=== PATIENT | male | born 1980 | race Caucasian/White ===

== ENCOUNTER 2016-03-01 18:20 | Emergency (ER) | payer OTHER ==
[~2016-03-01] VITALS: Ht 177.8 cm; Wt 69.9 kg
[~2016-03-01 18:20] MED LIST: ALBUTEROL0.09 MG/A2 INH; ALEVE220 MG PO; CLEOCIN HCL300 MG PO; CONZIP100 MG PO; CYMBALTA60 M1 PO; FIORICET 325 MG1 TAB PO; FLONASE120 SPRAY/ NAS; GABAPENTIN300 M2 PO; GOOD SENSE IBU200 MG PO; IBUPROFEN800 M1 PO; MEDROL DOSEPAK1 PAC PO; MOBIC15 MG PO; MOTRIN800 MG PO; NAPROXEN500 MG PO; NICOTINE GUM4 MG PO; PAROXETINE HCL30 M1 PO; QUETIAPINE FUM100 M1 PO; QUETIAPINE FUMA50 M1 PO; ROBITUSSIN W/CO10 ML PO; TESSALON PERLE100 MG PO; TRAMADOL HCL50 M1 PO; TRAMADOL50 MG PO; TRAZODONE HCL50 M1 PO; TYLENOL #31 TAB PO; ZITHROMAX Z-PA250 M1 PO
--- NOTE | 2016-03-01 18:24 | ED PSYCHIATRIC COMPLAINT ---
See Addendum History of Present Illness General Chief Complaint: Psychiatric Related Complaint Stated Complaint: PSYCH Source: patient, old records, EMS, PCP Exam Limitations: patient is not cooperative Allergies Coded Allergies: Penicillins (anaphylaxis 05/04/15) Reconcile Medications Acetaminophen/Butalbital/Caf (Fioricet 325 MG-50 MG-40 MG) 1 TAB TAB 1 TAB PO PRN MIGRAINES (Reported) Duloxetine HCl (Cymbalta) 60 MG CAPSULE.DR 1 CAP PO DAILY MENTAL HEALTH ( Reported) Gabapentin 300 MG CAPSULE 2 CAP PO TID MOOD (Reported) Ibuprofen 800 MG TABLET 1 TAB PO BID PAIN (Reported) Nicotine Polacrilex (Nicotine Gum) 4 MG GUM 4 MG PO PRN SMOKING CESSATION ( Reported) Paroxetine HCl 30 MG TABLET 60 MG PO DAILY MENTAL HEALTH (Reported) Quetiapine Fumarate 100 MG TABLET 1 TAB PO QPM SLEEP (Reported) Quetiapine Fumarate 50 MG TABLET 50 MG PO TID MENTAL HEALTH (Reported) Tramadol HCl 50 MG TABLET 1 TAB PO BIDP PRN PAIN (Reported) Trazodone HCl 50 MG TABLET 1 TAB PO QPM SLEEP (Reported) Triage Nurses Notes Reviewed? yes HPI: Patient presents for evaluation of potential harm to self. Patient apparently attempted to commit suicide by overdose at a hotel. Brought in by police who state the patient is currently in their custody. (LOLITA GEE,HAYLEY Diallo) Vital Signs & Intake/Output Vital Signs & Intake/Output Vital Signs Date Time Temp Pulse Resp B/P Pulse O2 O2 Flow FiO2 Ox Delivery Rate 03/03 1915 97.3 56 18 110/67 03/03 1437 97.1 84 18 127/61 03/03 1431 98.4 84 18 127/61 99 Room Air 03/03 1024 97.0 62 93/54 03/03 1015 62 20 93/54 98 Room Air 03/03 0749 97.0 58 18 94/55 97 Room Air 03/03 0740 97.0 58 18 94/55 03/03 0615 97.9 64 16 113/70 99 Room Air 03/03 0130 97.0 70 18 119/72 97 Room Air 03/02 2300 96.6 60 18 111/53 96 Room Air Past History Travel History Traveled to [place] past 21 day No Medical History Neurological: migraine EENT: NONE Cardiovascular: NONE Respiratory: asthma Gastrointestinal: NONE Hepatic: NONE Renal: NONE Musculoskeletal: chronic back pain, spinal stenosis, FRACTURE HIP R SIDE Psychiatric: alcohol dependence, depression, opioid dependence, substance abuse (some recent cocaine use) Endocrine: NONE Blood Disorders: NONE Cancer(s): NONE CUSTOMER SALES REPRESENTATIVE/Reproductive: NONE History of MRSA: No History of VRE: No History of CDIFF: No Influenza Vaccine: 11/03/15 Tetanus Vaccine: 06/18/14 Surgical History Surgical History: N Psychosocial History Who do you live with Friend Services at Home None What is your primary language Kenyan Family History Family History, If Any: FATHER (Liver cirrhosis). (LOLITA GEE,HAYLEY Diallo) Medical History Any Pertinent Medical History? see below for history Family History Hx Contributory? No (RUFUS BHATIA MD) Review of Systems Review of Systems Constitutional: Reports: no symptoms. EENTM: Reports: no symptoms. Respiratory: Reports: no symptoms. Cardiovascular: Reports: no symptoms. GI: Reports: no symptoms. Genitourinary: Reports: no symptoms. Musculoskeletal: Reports: no symptoms. Skin: Reports: no symptoms. Neurological/Psychological: Reports: see HPI, anxiety, depressed, emotional problems. Hematologic/Endocrine: Reports: no symptoms. Immunologic/Allergic: Reports: no symptoms. All Other Systems: Reviewed and Negative (RUFUS BHATIA MD) Physical Exam Physical Exam General Appearance: well developed/nourished, mild distress Head: contusions Eyes: Bilateral: normal appearance, PERRL, EOMI. Ears, Nose, Throat: normal pharynx, normal ENT inspection, hearing grossly normal Neck: normal inspection, supple, full range of motion, no midline tenderness Respiratory: normal breath sounds, chest non-tender, no respiratory distress, quiet respiration, lungs clear Cardiovascular: regular rate/rhythm, normal peripheral pulses, norml femoral pulses equa Gastrointestinal: soft, non-tender Extremities: normal range of motion Neurological/Psychiatric: no motor/sensory deficits, awake, agitated, alert, sheet rock applier II-XII nml as tested Appearance/Memory/Insight: disheveled, impaired insight Behavoir/Eye Contact/Speech: belligerent, uncooperative, compulsive, threatening eye contact Thoughts/Hallucinations: flight of ideas Skin: intact, normal color, warm/dry SAD PERSONS SAD PERSONS Response Value Male Sex? yes 1 Depression/Hopelessness? yes 2 Previous Attempts/Psych Care yes 1 Excessive Ethanol/Drug Use? yes 1 Rational Thinking Loss? yes 2 Single//? yes 1 Organized/Serious Attempt yes 2 Social Support? has support 0 Stated Future Intent? yes 2 Total 12 SAD PERSONS Done? yes (JANNETTE GEE,RUFUS) Progress Differential Diagnosis: DRUG INTOXICATION/OVERDOSE, PERSONALITY DISORDER, DEPRESSION, SUICIDALITY Comments: 03/01/2016 7:37:49 PM upon presentation the patient was yelling profanities and spitting at health providers. He refused to respond to verbal intervention and required 4. restraints and sedation chemically to protect himself from harm and to protect emergency department staff from harm as well. 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 03/02/2016 7:16:09 AM patient signed out to me by Dr. Bhatia. 03/02/2016 11:02:17 AM the patient was cleared by crisis for outpatient management. However, when the patient was advised that he was medically and psychiatrically cleared for discharge he began screaming that he was sick and that he would commit suicide. I have discussed his case with crisis again. The patient required adjustment of his handcuffs after he began banging his head against the bed railing. 03/02/2016 11:20:44 AM patient placed back in 4. locked leather restraints. Chris Mcginnis MD to evaluate the patient prior to disposition. 03/02/2016 12:47:08 PM patient has been evaluated by Chris Mcginnis MD. He recommends Seroquel 50 mg twice a day. Patient is considered high risk for suicide at this time and police will be notified of this. 03/02/2016 1:15:40 PM the police have expressed great concern regarding this patient as it pertains to him being placed in holding cell and surrounded by a steel bars and other hard objects. They're afraid that he will inflict injury upon himself. I've discussed this with Chris Mcginnis MD and the patient has been medicated with Seroquel. Bed search is underway. 03/02/2016 8:13:00 PM patient signed out to Dr. Hernandez. 03/03/2016 7:38:49 PM patient signed out to me by Dr. Hernandez at 7:00 this morning. Patient has had an uneventful emergency department stay and has been signed out to Dr. Bhatia. (HAYLEY MCHUGH MD) Plan of Care: Orders Procedure Date/time Status Continuous Observation Monitor 03/03 1900 Active Continuous Observation Monitor 03/03 1500 Active Continuous Observation Monitor 03/03 1100 Active Continuous Observation Monitor 03/03 0700 Active Continuous Observation Monitor 03/03 0300 Active Current Medications Sig/Olga Start time Last Medication Dose Stop Time Status Admin Gabapentin 300 MG Q8 03/03 2200 UNVr (Neurontin) Lorazepam 1 MG Q6P PRN 03/02 2030 AC (Ativan) Folic Acid 1 MG DAILY 03/02 1401 UNVr (Folic Acid) 03/04 1001 Multivitamins 1 TAB DAILY 03/02 1401 AC (Theragran Vitamins) Thiamine HCl 100 MG DAILY 03/02 1401 AC (Vitamin B1) 03/04 1001 Lorazepam 2 MG Q2P PRN 03/02 1345 AC (Ativan) Lorazepam 1 MG Q2P PRN 03/02 1345 AC (Ativan) Hand-Off Endorsed To: HAYLEY MCHUGH MD Endorsed Time: 0700 Pending: consult Comments: Now awake reports recalling events 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 (RUFUS BHATIA MD) Hand-Off Endorsed To: HAYLEY MCHUGH MD Endorsed Time: 0700 Pending: consult (CHRIS HERNANDEZ MD) Departure Departure Condition: Stable Referrals: PATIENT HAS NO PRIMARY CARE DR (PCP/Family) Additional Instructions: Andrea should be on suicide precautions for the duration of his custody. He should then follow up with IOP or psychiatrist as soon as possible for evaluation and long-term treatment. Departure Forms: Customer Survey General Discharge Information (HAYLEY MCHUGH MD) Departure Clinical Impression Primary Impression: Suicidal ideations Secondary Impressions: Major depression Qualifiers: Major depression recurrence: recurrent Active/Remission status: currently active Major depression episode severity: unspecified Qualified Code: F33.9 - Major depressive disorder, recurrent, unspecified (RUFUS BHATIA MD) Departure Disposition: STILL A PATIENT (CHRIS HERNANDEZ MD) Departure Disposition: STILL A PATIENT (CHRIS HERNANDEZ MD) Additional Instructions: Andrea should be on suicide precautions for the duration of his custody. He should then follow up with IOP or psychiatrist as soon as possible for evaluation and long-term treatment. Departure Forms: Customer Survey General Discharge Information (SATHYA MCHUGH MDORY D) Departure Clinical Impression Primary Impression: Suicidal ideations Secondary Impressions: Major depression Qualifiers: Major depression recurrence: recurrent Active/Remission status: currently active Major depression episode severity: unspecified Qualified Code: F33.9 - Major depressive disorder, recurrent, unspecified (JANNETTE GEE,RUFUS)
[2016-03-01 19:02] LABS: ABSOLUTE BASOPHIL COUNT 0 /CUMM (0.0-0.2); ABSOLUTE EOSINOPHIL COUNT 0.1 /CUMM (0.0-0.7); ABSOLUTE GRANULOCYTE CT 8.1 /CUMM (1.4-6.5); ABSOLUTE LYMPH COUNT 1.3 /CUMM (1.2-3.4); ABSOLUTE MONOCYTE COUNT 0.4 /CUMM (0.10-0.60); BASOPHIL % 0.4 % (0.0-2.0); EOSINOPHIL % 0.9 % (0-5); GRANULOCYTE % 81.3 % (42.2-75.2); HEMATOCRIT 44.6 % (42-52); MEAN CORPUSCULAR HGB CONC 33.8 G/DL (33.0-37.0); MEAN CORPUSCULAR VOLUME 91.8 FL (80.0-94.0); MEAN PLATELET VOLUME 7.8 FL (7.4-10.4); PLATELET COUNT 315 /CUMM (130-400); RED BLOOD CELL CT 4.86 /CUMM (4.70-6.10); WHITE BLOOD CELL COUNT 9.9 /CUMM (4.8-10.8)
--- NOTE | 2016-03-02 11:31 | ED PSYCH CRISIS CONSULTATION ---
See Addendum Crisis Consult Basic Assessment Date of Consult: 03/02/16 Responsible Person/Accompanied By: Self/[employer] Insurance Authorization: Insurance #1: Insurance name: ALBERT JO Phone number: Policy number: [id number] Group number: Authorization number: ED Provider: Patient's ED Provider: HAYLEY ROCK MD Primary Care Physician: Patient's PCP: PATIENT HAS NO PRIMARY CARE DR PCP's Phone Number: Current Psychiatrist: Chris Mcginnis MD Chief Complaint: Psychiatric Related Complaint Patient's Quote: "I want to " Present Illness: Pt is a 36 yo single male BIBA on a PEER handcuffed and accompanied by the [place] Police. The police report states the pt "took numerous prescription medications in a non-prescribed manner, smashed his head into wall multiple times". Upon interviewing the pt he states "I want to ". Pt was alert and oriented, laying in hospital bed handcuffed both by hands and feet. He states his plan is to "go home and take his medications", "I don't give two shits anymore". "I have no will to live". He denies AH/VH. Pt describes the precipitant to his ED visit as follows: he was asked to leave [facility] because he revealed to staff he was taking more Fioricet than what was prescribed. Pt then said he went to a hotel and was intoxicated when the staff at the hotel called 911 because he was "in a computer room" and he was intoxicated. Pt said the police arrested him and accompany him to the ED because he violated his probation. He has a court date on 03/15/16 and has charges that includes interferring with an officer. Pt states yes "I'm an addict" he drank half a pint of Vodka yesterday before going to the hotel. Also, Pt admits to abusing Fioricet, "I took about 15 pills". Pt states he has a history of using Cocaine, but has not used Cocaine in a month. Pt reports a history of inpatient hospital admission here at [facility] for suicidal ideation and attempts. Pt sates he cut the side of his head in 2013 and in 2014 he OD on medications. Pt's [facility] records indicated he was admitted here at [facility] 4 times in 2015, March, April, October and November. His last admission he was requesting help for Unspecified depression, alcohol use disorder along with abuse of Xanax and other prescription drugs. Pt identified his mental health diagnoses from previous hospitalizatons as Severe Depression, Bipolar Disordeer and Insomnia. Current psychotropic medications Cymbalta 60mgs, Seroquel 100mgs, Trazodone 50mgs and Neurotin 600mgs. Patient's Address: [address] [place] [address] Other Who Do You Live With? Friend Family/Informants Interviewed: Phone contact with Pt's mother Nerissa , requesting that the pt needs help and she wants him admitted instead of going to nursing home. Allergies - Coded Allergies: Penicillins (anaphylaxis 05/04/15) Current Medications - Scheduled Medications Duloxetine HCl (Cymbalta) 60 MG CAPSULE. 1 CAP PO DAILY MENTAL HEALTH ( Reported) Entered as Reported by NAVEED DELGADO on 12/20/15 1451 Gabapentin 300 MG CAPSULE 2 CAP PO TID MOOD #150 (Reported) Entered as Reported by MYNOR LOUIS on 10/23/15 1707 Ibuprofen 800 MG TABLET 1 TAB PO BID PAIN #60 (Reported) Entered as Reported by MYNOR LOUIS on 10/23/15 170 Paroxetine HCl 30 MG TABLET 60 MG PO DAILY MENTAL HEALTH #60 (Reported) Entered as Reported by MYNOR LOUIS on 10/23/15 170 Quetiapine Fumarate 100 MG TABLET 1 TAB PO QPM SLEEP #30 (Reported) Entered as Reported by MYNOR LOUIS on 10/23/15 1706 Quetiapine Fumarate 50 MG TABLET 50 MG PO TID MENTAL HEALTH #90 (Reported) Entered as Reported by MYNOR LOUIS on 10/23/15 170 Trazodone HCl 50 MG TABLET 1 TAB PO QPM SLEEP #30 (Reported) Entered as Reported by MYNOR LOUIS on 10/23/15 1708 Scheduled PRN Medications Acetaminophen/Butalbital/Caf (Fioricet 325 MG-50 MG-40 MG) 1 TAB TAB 1 TAB PO PRN MIGRAINES #60 (Reported) Entered as Reported by NAVEED DELGADO on 03/23/15 213 Nicotine Polacrilex (Nicotine Gum) 4 MG GUM 4 MG PO PRN SMOKING CESSATION #110 GUM (Reported) Entered as Reported by MYNOR LOUIS on 10/23/15 170 Tramadol HCl 50 MG TABLET 1 TAB PO BIDP PRN PAIN #60 (Reported) Entered as Reported by MYNOR LOUIS on 10/23/15 1709 Laboratory Results: Laboratory Tests 03/01/16 1855: Anion Gap 22 H, Estimated GFR > 60, BUN/Creatinine Ratio 15.0, Glucose 95, Calcium 10.0, Total Bilirubin 0.4, AST 27, ALT 33, Alkaline Phosphatase 58, Total Protein 8.0, Albumin 5.0, Globulin 3.0, Albumin/Globulin Ratio 1.7, CBC w Diff NO MAN DIFF REQ, RBC 4.86, MCV 91.8, MCH 31.0, RDW 14.0, MPV 7.8, Gran % 81.3 H, Lymphocytes % 13.4 L, Monocytes % 4.0, Eosinophils % 0.9, Basophils % 0.4, Absolute Granulocytes 8.1 H, Absolute Lymphocytes 1.3, Absolute Monocytes 0.4, Absolute Eosinophils 0.1, Absolute Basophils 0, PUBS MCHC 33.8, Salicylates < 1.0, Acetaminophen < 10.0 L, Serum Alcohol < 10.0 Microbiology 03/01 2023 URINE ROUT: Urine Culture - RES (NANCY LIMW,FERNANDO) Past History Past Medical History Neurological: migraine EENT: NONE Cardiovascular: NONE Respiratory: asthma Gastrointestinal: NONE Hepatic: NONE Renal: NONE Musculoskeletal: chronic back pain, spinal stenosis, FRACTURE HIP R SIDE Psychiatric: alcohol dependence, depression, insomnia, opioid dependence, substance abuse (some recent cocaine use) Endocrine: NONE Blood Disorders: NONE Cancer(s): NONE FOOD ORDER DELIVERY RUNNER/Reproductive: NONE Past Surgical History Surgical History: none Psychosocial History Strengths/Capabilities: Pt is able to articulate his wants and needs. Pt has had episodes of treatment and stability. Physical Limitations (Interventions): Chronic back pain, spinal stenosis. Psychiatric Treatment History Psych Treatment Psychiatric Treatment Yes Inpatient Treatment Yes Outpatient Treatment No Location of Treatment [facility] Reason for Treatment Depression, Alcohol use disorder Dates of Treatment March, April, October & November 2015. Response to Treatment Relapse Alcohol, Cocaine, Xanax and prescription medications. Diagnosis by History: Major Depression Alcohol Use D/O Sedative Use D/O Opioid Use D/O Substance Use/Abuse History Drug Use/Abuse Substances Used/Abused Yes Substance Used/Abused Alcohol (Barbituates) First Use 30 Last Used 03/01/16 How much used/taken Half pint Vodka, Fioricet 15 pills. How often Daily For how long "About a week" Route of use Oral Substance Abuse Treatment Substance Abuse Treatment Past Substance Abuse TX Yes Inpatient Treatment Yes Outpatient Treatment Yes Location of Treatment [facility] Reason for Treatment Dextox and Intensive Outpatient Treatment Dates of Treatment 2015, 2014, 2013 Response to Treatment Relape, noncompliance with medications (FERNANDO CRUZ LCSW) Current Mental Status Mental Status Orientation: Person, Place, Situation Affect: Anxious, Angry, Depressed, Hopeless, Sad Speech: WNL Neuro-vegetative: Helpless, Sleep Disturbance Appearance Appearance- Dress/Hygiene: Upon entering the room he had the bed sheet over his head. Pt had a bruise on his right cheek, he had "crust on his eyes & mouth. Pt was handcuffed to the hospital bed by his hands and feet. Overall appearance he looks in distress and very sad to be in the position of being observed by the police and in handcuffs. Behaviors Thought Process: WNL Thought Content: WNL Memory: WNL Insight: Poor SI/HI Risk Assessment Past Suicidal Ideation/Attempts Yes Current Suicidal Ideation/Att Yes Past Homicidal Ideation/Att: No Current Homicidal Ideation/Attempts No Degree of Intent: Plan ("To go home & take his meds"), Self Destructive/No Danger To: Property, Self (Pt Bang head on hosp. bed) Gravely Disabled: Lack of Insight, Poor Impulse Control, Poor Judgment Risk Factors: high anxiety/distress, history of Violence, history of suicide atmpts, SA/MH hospitalized, substance abuse, poor impulse control, male, limited support Lethality Ratin (Abuse of Fioricet combine ETOH) PTSD Checklist PTSD Done? pt unable to participate ED Management Sitter: Yes Restraints: Yes (FERNANDO CRUZ LCSW) DSM5/PS Stressors/Medical Prob Diagnosis' (DSM 5, Stressors, Medical): F32.9 Depressive Disorder Unspecified, F10.20 Alcohol Use Disorder Moderate, F13.2 Sedative/Hypnotice use Disorder, Hx of Cocaine Use Disorder (remission 1 month), Medical Condition, Hx Asthma Migraine, Spinal Stenosis Chronic Back Pain , Unemployed Current GAF: 18 (FERNANDO CRUZ LCSW) Departure Disposition Psych Medical Clearance Date: 03/02/16 Medically Cleared at: 0900 Time Started: 0915 Time Ended: 0940 Psychiatrist Consulted: Chris Mcginnis MD Date Disposition Established: 03/02/16 Time Disposition Established: 014 Plan for Disposition - Modality: Bed Search Facility: [facility] Follow-up Appt Date: 03/02/16 Follow-Up Appt Time: 1414 Contact: [facility], [facility], [facility] [phone] Rationale for Disposition: Pt endorses suicidal ideations with a plan to overdose on prescription medications. Type of IP Admission: PEC Additional Instructions: Fax clinicals to [facility], [facility], [facility], and [facility] Referrals PATIENT HAS NO PRIMARY CARE DR (PCP/Family) (FERNANDO CRUZ LCSW) Addendum Addendum [facility] denied to accept pt. [facility] is reviewing clinical in consideration of transfer. (SELENA CAST LCSW) Addendum Patient seen this evening for re-evaluation to determine if anything had changed. Patient reiterated the hopelessness of his situation and asked about the status of hospitalization. Patient had visible bruises on his face, apparently from struggles prior to getting to E.D. Patient remains suicidal, and states he would do what he had to do. while he was calmly spoken to, he did not respond with any anger or threatening behavior; rather, he seemed resigned to spending the night at the hospial and requested that he get his night medications, so that he could sleep. [facility] had called back with questions a few times about medications and his behavior, but the doctor declined the patient after all. [facility] said they had male bed or beds, and aked me about the patient. So they are aware he is in custody. They said they could not do this tonight, but to call in a.m. Patient relatively calm and comfortable at present, although very negative. (YAZMIN RODRIGUEZ,KAI Teran) Addendum 03/04/2016 @ 5:45pm This PM kilnman called back [facility] and [facility] (where pt's clinical information had been faxed to earlier) and both hospitals reported that they were full with no beds available tonight. This PM kilnman then re-evaluated pt. who had been held over from AM shift due to pt being at risk of harm to self and there being no hospital beds available. Pt had just awoke, but was oriented. He appeared depressed. He denied any suicidal thoughts "at the moment". He also denied any current homicidal thoughts. He said that he still wanted to be admitted to the hospital. Pt was informed that there were no beds in the state tonight and so he would be held over in the ED until the morning. Pt expressed understanding of this plan. (LUCIUS BOCANEGRA,SUZETTE) Addendum Brief check - in by this writing this evening. Pt. presents euthymic and is reclined on hospital bed watching television and eating a meal. Pt. presents euthymic with flat affect. He states mood as "okay. " Pt. requested this va underwriter contact his mother and inquire if she intends to be present for his court date tomorrow. Also, pt. is asking mother to contact his title attorney on his behalf. This va underwriter contacted mother by phone - she advised she will be present tomorrow and will contact pt.'s title attorney. This va underwriter relayed this information to pt. Pt. is being monitored by both hospital sitter and [place] guest relations officer Adarsh who indicated pt. will be transported tomorrow morning ~9:[address] Officer Adarsh will remain until midnight and be replaced with another officer. (YE BOCANEGRA,JOSÉ MIGUEL) Addendum SW met with the patient for reassessment. The patient presents with depressed mood and flat affect. The patient denies any current suicidal or homicidal ideations at this time. He is aware of his pending discharge to be arraigned this AM and is in agreement with the plan. He states that he is hopeful that the legend maker will order "him to get the help that he needs." Case discussed with Dr. Mcginnis, Dr. Rivera and Dr. Rock and the plan is as follows; the patient will be discharged to be arraigned at court, he remains a risk to self and should remain on suicide watch during the court process. If the patient is ordered to nursing home, then the recommendation is suicide precautions should continue and if he is discharged on a Promise to appear, then he should be brought back to a local Emergency Department for psychiatric evaluation. The patient and officer Ruth Euceda (BADGE # [id number]), verbalized understanding of the plan and will ensure that it occurs. Officer Ok will ensure that the Judicial [employer] are aware, that the patient is a suicide risk and relay the above information. JOSE MANUEL spoke to the patient mother, Nerissa Chen, who called to let the patient know, that she will meet him at the court house. Case discussed with JAYA Mejía, who will provide the patient and officer with 3 copies of the above discharge instructions; one for court, one for the PD and one for the patient. (SEKOU BOCANEGRA,BEN)
--- NOTE | 2016-03-02 12:11 | ED PSY CRISIS COLLATERAL NOTE ---
Collateral Note Collateral Note Family/Inform/Jakub Contacts: Phone contact with Nerissa Chen (mother) who reports taht the pt's girlfriend brought him to a hotel last night because she "had something to do". She states he was in a program for a month at [facility] in [place] and then transition about a week ago to [facility] to work on his recovery. Nerissa is really interested in the pt being admitted because she states he really need help.
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
--- NOTE | 2016-03-05 13:00 | ED PSYCHIATRIST/APRN CONSULT ---
Psychiatrist/NITRATING ACID MIXER ED Consult Assessment and Plan: Dr. Jones's notes reviewed. Patient seen at 11:48 a.m. Left hand is handcuffed to stretcher. Two police officers are nearby. He does not remember me from Saturday. States he is doing "okay, I guess. Just really depresssed. Just seem to keep getting in trouble every time I try to get help." He is discouraged that suicide attempt failed. Doesn't want to be alive anymore. Affect is tearful. Sad 08/27. Anxiety 08/27. Feels hopeless, helpless, worthless and guilty. Reports SI. Denies HI, AH, VH and PI. Oriented to person and place. Doesn't know the date. Correctly gives the month as February. Gives the year incorrectly as 2015. IMPRESSION: Continue to observe and treat in the ER with plan for police to bring patient to court arraignment tomorrow morning. Continue sitter while the patient remains here, and we have advised police that the patient must remain on a suicide watch after he leaves here. If the patient is released by the rig builder on a promise to appear, the patient should be brought immediately to an ER for re-evaluation of his safety.
[2016-03-06 08:49] VITALS: BP 118/70
== END 2016-03-06 09:40 | disposition still patient (30) ==
LOC: ERH 18:20 → CANBEDREQ 03-06 07:13 → ERH 03-06 09:40
PROVIDERS: Emergency Medicine
DX: R45.851 Suicidal ideations (principal); F32.9 Major depressive disorder, single episode, unspecified
CPT/HCPCS: 80307; 87086; 93005; 93010; 96372; G0463; G0480; J1200; J1630; J3490

== ENCOUNTER 2017-07-30 18:59 | Emergency (ER) | payer OTHER ==
[~2017-07-30] VITALS: Ht 175.3 cm; Wt 77.1 kg
[~2017-07-30 18:59] MED LIST changes: +QUETIAPINE FUMA25 M1 PO; -QUETIAPINE FUMA50 M1 PO
[2017-07-30 19:44] LABS: ABSOLUTE BASOPHIL COUNT 0.1 /CUMM (0.0-0.2); ABSOLUTE EOSINOPHIL COUNT 0.1 /CUMM (0.0-0.7); ABSOLUTE GRANULOCYTE CT 4.5 /CUMM (1.4-6.5); ABSOLUTE LYMPH COUNT 2.4 /CUMM (1.2-3.4); ABSOLUTE MONOCYTE COUNT 0.5 /CUMM (0.10-0.60); BASOPHIL % 0.7 % (0.0-2.0); GRANULOCYTE % 60.1 % (42.2-75.2); HEMATOCRIT 52.7 % (42-52); MEAN CORPUSCULAR HGB 30.9 PG (27.0-31.0); MEAN CORPUSCULAR HGB CONC 33.5 G/DL (33.0-37.0); MEAN CORPUSCULAR VOLUME 92.1 FL (80.0-94.0); MEAN PLATELET VOLUME 8.7 FL (7.4-10.4); PLATELET COUNT 335 /CUMM (130-400); RBC DISTRIBUTION WIDTH 13.3 % (11.5-14.5); RED BLOOD CELL CT 5.73 /CUMM (4.70-6.10); WHITE BLOOD CELL COUNT 7.5 /CUMM (4.8-10.8)
--- NOTE | 2017-07-30 19:48 | ED PSYCHIATRIC COMPLAINT ---
History of Present Illness General Chief Complaint: Psychiatric Related Complaint Stated Complaint: BIBA FOR SI Source: patient Exam Limitations: no limitations Allergies Coded Allergies: Penicillins (anaphylaxis 05/04/15) Triage Note: PT BIBA ON A PEC FOR +SI THOUGHTS "I WOULD BLOW MY BRAINS OUT", DENIES HI. PMH OF ANXIETY, DEPRESSION AND BIPOLAR DISEASE, HAS NOT BEEN COMPLIANT WITH MEDS FOR A MONTH. STATES PMH OF ETOH WITHDRAWAL SEIZURES. RELAPSED A MONTH AGO, HAS BEED DRINKING OCCASIONALLY FOR THE LAST MONTH. ADMITS TO A PINT OF VODKA SINCE NOON. DENIES DRUGS, OCCASIONALLY USES MARIJUANA. IS 2PPD SMOKER. STATES IS ANGRY AT "MY BABY MOMMA" SPEACH CLEAR. PT WANDED BY SECURITY ON ARRIVAL TO ED. Triage Nurses Notes Reviewed? yes Onset: Abrupt Duration: day(s): Timing: recent history HPI: 29-year-old male comes into the emergency room for further evaluation of suicidal ideation. History of alcohol use. He owns a gun at home. He called the police. He reports he's been drinking heavily. Some associated marijuana use at times. He misses his children. Denies any other associated symptoms. He called the police. (Guero Love) Vital Signs & Intake/Output Vital Signs & Intake/Output Vital Signs Date Time Temp Pulse Resp B/P B/P Pulse O2 O2 Flow FiO2 Mean Ox Delivery Rate 07/31 1500 98.4 60 18 132/66 98 Room Air 07/31 1405 74 16 110/70 07/31 1131 97.7 81 16 108/70 07/31 1042 97.7 81 18 108/70 97 Room Air 07/31 0815 98.2 70 18 138/86 95 Room Air 07/31 0639 98.1 82 18 134/77 07/31 0638 98.1 82 18 134/77 96 Room Air 07/31 0230 98.0 102 18 123/61 07/31 0230 98.0 102 18 123/61 98 Room Air 07/31 0100 98.0 88 16 128/64 07/30 2310 98.0 92 16 130/74 07/30 2310 98.0 92 16 130/74 97 / 1922 98.5 89 18 123/71 07/30 1922 98.5 89 18 123/71 97 Room Air 07/30 1914 98.8 86 136/86 98 Room Air ED Intake and Output 07/31 0000 07/30 1200 Intake Total Output Total Balance Patient 170 lb Weight Weight Reported by Patient Measurement Method (Shweta GEE,Wiley Randle) Reconcile Medications Duloxetine HCl (Cymbalta) 60 MG CAPSULE.DR 1 CAP PO DAILY MENTAL HEALTH ( Reported) Gabapentin 300 MG CAPSULE 3 CAP PO TID MOOD (Reported) Hydroxyzine Pamoate 50 MG CAPSULE 1 CAP PO TID PRN ANXIETY (Reported) Ibuprofen 800 MG TABLET 1 TAB PO BID PAIN (Reported) Nicotine Polacrilex (Nicotine Gum) 4 MG GUM 4 MG PO PRN SMOKING CESSATION ( Reported) Paroxetine HCl 30 MG TABLET 60 MG PO DAILY MENTAL HEALTH (Reported) Quetiapine Fumarate 100 MG TABLET 1 TAB PO QPM SLEEP (Reported) Quetiapine Fumarate 25 MG TABLET 1 TAB PO TID PRN ANXIETY (Reported) Tramadol HCl 50 MG TABLET 1 TAB PO BIDP PRN PAIN (Reported) Trazodone HCl 50 MG TABLET 1 TAB PO QPM SLEEP (Reported) (Tonie GEE,J Carlos Miranda) Past History Travel History Traveled to [place] past 21 day No Medical History Neurological: migraine EENT: NONE Cardiovascular: NONE Respiratory: asthma Gastrointestinal: NONE Hepatic: NONE Renal: NONE Musculoskeletal: chronic back pain, spinal stenosis, FRACTURE HIP R SIDE Psychiatric: alcohol dependence, depression, insomnia, opioid dependence, substance abuse (some recent cocaine use), Bipolar, PTSD, anxiety, Endocrine: NONE Blood Disorders: NONE Cancer(s): NONE SOFTWARE PUBLISHER/Reproductive: NONE History of MRSA: No History of VRE: No History of CDIFF: No Isolation History: Standard Tetanus Vaccine: 06/18/14 Surgical History Surgical History: N Psychosocial History Who do you live with Friend Services at Home None What is your primary language Citizen [place] Tobacco Use: Current Daily Use Daily Tobacco Use Amount/Type: => 5 Cigarettes daily ETOH Use: occasional use Illicit Drug Use: marijuana Family History Family History, If Any: FATHER (Liver cirrhosis). Hx Contributory? No (Guero Love) Medical History Any Pertinent Medical History? see below for history (Shweta GEE,Wiley Randle) Review of Systems Review of Systems Constitutional: Reports: no symptoms. EENTM: Reports: no symptoms. Respiratory: Reports: no symptoms. Cardiovascular: Reports: no symptoms. GI: Reports: no symptoms. Genitourinary: Reports: no symptoms. Musculoskeletal: Reports: no symptoms. Skin: Reports: no symptoms. Neurological/Psychological: Reports: see HPI. Hematologic/Endocrine: Reports: no symptoms. Immunologic/Allergic: Reports: no symptoms. All Other Systems: Reviewed and Negative (Guero Love) Physical Exam Physical Exam General Appearance: well developed/nourished, mild distress Head: atraumatic Eyes: Bilateral: normal appearance. Ears, Nose, Throat: normal ENT inspection, hearing grossly normal Neck: normal inspection Respiratory: normal breath sounds Extremities: normal range of motion Neurological/Psychiatric: awake, alert, calm Behavoir/Eye Contact/Speech: cooperative, normal speech Thoughts/Hallucinations: no apparent hallucination Skin: intact, normal color, warm/dry SAD PERSONS SAD PERSONS Response Value Depression/Hopelessness? yes 2 Excessive Ethanol/Drug Use? yes 1 Rational Thinking Loss? yes 2 Single//? yes 1 Organized/Serious Attempt yes 2 Stated Future Intent? yes 2 Total 10 SAD PERSONS Done? yes (Guero Love) Progress Differential Diagnosis: dementia, drug intoxication, drug overdose, drug withdrawal, depression, anxiety, bipolar, PTSD, (Guero Love) Plan of Care: Orders Procedure Date/time Status Regular Diet 07/31 B Active ED CRISIS PSYCH CONSULT 07/30 1946 Active Continuous Observation Monitor 07/31 1911 Active CIWA 07/31 1911 Active URINE DRUGS OF ABUSE 07/31 1911 Complete ETHANOL 07/31 1911 Complete COMPREHENSIVE METABOLIC PANEL 07/31 1911 Complete CBC WITHOUT DIFFERENTIAL 07/31 1911 Complete Current Medications Sig/Olga Start time Last Medication Dose Stop Time Status Admin Quetiapine Fumarate 100 MG QPM 07/31 2100 UNVr (Seroquel) Gabapentin 600 MG TID 07/31 1400 UNVr 07/31 (Neurontin) 1445 Quetiapine Fumarate 50 MG TID 07/31 1400 UNVr 07/31 (SEROquel) 1445 Tramadol HCl 50 MG .[BIDP] PRN 07/31 1315 UNVr (Ultram) Duloxetine HCl 60 MG DAILY 07/31 1307 UNVr 07/31 (Cymbalta) 1445 Ibuprofen 800 MG BID 07/31 1307 UNVr 07/31 (Motrin) 1445 Nicotine 4 MG 4 TIMES/DAY 07/31 1307 UNVr 07/31 (Nicotine) 1445 Laboratory Tests 07/30/171932: Anion Gap 20 H, Estimated GFR > 60, BUN/Creatinine Ratio 8.9, Glucose 93, Calcium 10.2, Total Bilirubin 0.4, AST 18, ALT 27, Alkaline Phosphatase 59, Total Protein 8.7 H, Albumin 5.2 H, Globulin 3.5, Albumin/Globulin Ratio 1.5, CBC w Diff NO MAN DIFF REQ, RBC 5.73, MCV 92.1, MCH 30.9, MCHC 33.5, RDW 13.3, MPV 8.7, Gran % 60.1, Lymphocytes % 31.8, Monocytes % 6.4, Eosinophils % 1.0, Basophils % 0.7, Absolute Granulocytes 4.5, Absolute Lymphocytes 2.4, Absolute Monocytes 0.5, Absolute Eosinophils 0.1, Absolute Basophils 0.1, Serum Alcohol 184.0 07/30/171924: Urine Opiates Screen < 100, Methadone Screen 45, Barbiturate Screen < 60, Ur Phencyclidine Scrn < 6.00, Amphetamines Screen < 100, U Benzodiazepines Scrn < 85, Urine Cocaine Screen < 50, Urine Cannabis Screen < 5.00 Comments: 07/30/2017 11:37:31 PM patient signed out to me by PA at shift chart changer. Patient signed out to Dr. Hernandez at shift chart changer. (Shweta GEE,Wiley Randle) Departure Departure Condition: Stable Referrals: Patient Has No Primary Care Dr (PCP/Family) Departure Forms: Customer Survey General Discharge Information (Guero Love) Departure Clinical Impression Primary Impression: Homicidal ideation (Shweta GEE,Wiley Randle) Departure Comments 07/31/17 9:45 AM The patient was signed out to me by Dr. Hernandez at 7 AM. He is pending disposition by crisis. (Wiley Magaña DO) Departure Disposition: HOME OR SELF CARE PA/KITCHEN WORKER Co-Sign Statement Statement: ED Attending supervision documentation- [X] I saw and evaluated the patient. I have also reviewed all the pertinent lab results and diagnostic results. I agree with the findings and the plan of care as documented in the PA's/KITCHEN WORKER's documentation. [X] I have reviewed the ED Record and agree with the PA's/KITCHEN WORKER's documentation. [] Additions or exceptions (if any) to the PAs/KITCHEN WORKER's note and plan are summarized below: [Patient placed on APC and is to be transferred to [facility] Dr. [facility] is accepting.] (Tonie GEE,J Carlos Miranda) Departure Comments [x] I have reviewed the ED Record and agree with the PA's/KITCHEN WORKER's documentation. PA/KITCHEN WORKER Co-Sign Statement Statement: ED Attending supervision documentation- [] I saw and evaluated the patient. I have also reviewed all the pertinent lab results and diagnostic results. I agree with the findings and the plan of care as documented in the PA's/KITCHEN WORKER's documentation. [] I have reviewed the ED Record and agree with the PA's/KITCHEN WORKER's documentation. [] Additions or exceptions (if any) to the PAs/KITCHEN WORKER's note and plan are summarized below: [] (David GEE,Chris Orozco)
--- NOTE | 2017-07-31 08:18 | ED PSYCH CRISIS CONSULTATION ---
Crisis Consult Basic Assessment Date of Consult: 07/31/17 Responsible Person/Accompanied By: self/biba/PEER Insurance Authorization: Insurance #1: Insurance name: [employer] JO Phone number: Policy number: [id number] Group number: Authorization number: ED Provider: Patient's ED Provider: Wiley Magaña DO Primary Care Physician: Patient's PCP: Patient Has No Primary Care Dr PCP's Phone Number: Current Psychiatrist: none/scheduled to be seen at [facility] in August Chief Complaint: Psychiatric Related Complaint Patient's Quote: I've been thinking about ending my life Present Illness: Pt is a 37 yo male biba last evening to [facility] on an [place] [employer] for making statement to his mother that he wanted to shoot himself. Pt has had prior suicide attempts and 4 admissions to [facility] in 2016. Pt states "I'm thinking about ending my life". Pt states he has access to a gun but doesn't want to talk about it. Pt reports he was discharged from [facility] residential program after 5 months in May but they didn't provide him with medication refills and he isn't scheduled to be seen by a new provider at [facility] until August. Pt had been prescribed Cymbalta, Gabapentin; Abilify and Seroquel. Pt reports he starting using etoh again past month to self-medicate. He reports to drinking 1- 1.5 pints daily. Pt urine drug screen is negative.CSSRS completed. Pt with multiple risk factors with minimal protective factors. Pt is on probation with several conduct charges the past few yrs. He is from his young children and is unable to work due to chronic pain. Pt denies HI/AH/VH. Pt appears depressed but is calm, cooperative and OX3. Case reviewed with Dr Conde. Recommendation for inpatient psychiatric treatment. Pt is in agreement with plan and wants to get stabilized back on his medications. Pt will be a pt search due to no current bed availability. Patient's Address: [address] [place] [address] Other Phone Number: Who Do You Live With? Friend Family/Informants Interviewed: collateral provided by pt mother Nerissa . Allergies - Coded Allergies: Penicillins (anaphylaxis 05/04/15) Current Medications - Scheduled Medications Duloxetine HCl (Cymbalta) 60 MG CAPSULE.DR 1 CAP PO DAILY MENTAL HEALTH ( Reported) Entered as Reported by Wanda Marc on 12/20/15 1451 Gabapentin 300 MG CAPSULE 2 CAP PO TID MOOD #150 (Reported) Entered as Reported by Dominick Bowen on 10/23/15 170 Ibuprofen 800 MG TABLET 1 TAB PO BID PAIN #60 (Reported) Entered as Reported by Dominick Bowen on 10/23/15 170 Paroxetine HCl 30 MG TABLET 60 MG PO DAILY MENTAL HEALTH #60 (Reported) Entered as Reported by Dominick Bowen on 10/23/15 170 Quetiapine Fumarate 100 MG TABLET 1 TAB PO QPM SLEEP #30 (Reported) Entered as Reported by Dominick Bowen on 10/23/151705 Quetiapine Fumarate 50 MG TABLET 50 MG PO TID MENTAL HEALTH #90 (Reported) Entered as Reported by Dominick Bowen on 10/23/15 170 Trazodone HCl 50 MG TABLET 1 TAB PO QPM SLEEP #30 (Reported) Entered as Reported by Dominick Bowen on 10/23/15 170 Scheduled PRN Medications Acetaminophen/Butalbital/Caf (Fioricet 325 MG-50 MG-40 MG) 1 TAB TAB 1 TAB PO PRN MIGRAINES #60 (Reported) Entered as Reported by Wanda Marc on 03/23/15 213 Nicotine Polacrilex (Nicotine Gum) 4 MG GUM 4 MG PO PRN SMOKING CESSATION #110 GUM (Reported) Entered as Reported by Dominick Bowen on 10/23/15 170 Tramadol HCl 50 MG TABLET 1 TAB PO BIDP PRN PAIN #60 (Reported) Entered as Reported by Dominick Bowen on 10/23/15 170 Laboratory Results: Laboratory Tests 07/30/17 1933: Anion Gap 20 H, Estimated GFR > 60, BUN/Creatinine Ratio 8.9, Glucose 93, Calcium 10.2, Total Bilirubin 0.4, AST 18, ALT 27, Alkaline Phosphatase 59, Total Protein 8.7 H, Albumin 5.2 H, Globulin 3.5, Albumin/Globulin Ratio 1.5, CBC w Diff NO MAN DIFF REQ, RBC 5.73, MCV 92.1, MCH 30.9, MCHC 33.5, RDW 13.3, MPV 8.7, Gran % 60.1, Lymphocytes % 31.8, Monocytes % 6.4, Eosinophils % 1.0, Basophils % 0.7, Absolute Granulocytes 4.5, Absolute Lymphocytes 2.4, Absolute Monocytes 0.5, Absolute Eosinophils 0.1, Absolute Basophils 0.1, Serum Alcohol 184.0 07/30/17 1925: Urine Opiates Screen < 100, Methadone Screen 45, Barbiturate Screen < 60, Ur Phencyclidine Scrn < 6.00, Amphetamines Screen < 100, U Benzodiazepines Scrn < 85, Urine Cocaine Screen < 50, Urine Cannabis Screen < 5.00 Past History Past Medical History Neurological: migraine EENT: NONE Cardiovascular: NONE Respiratory: asthma Gastrointestinal: NONE Hepatic: NONE Renal: NONE Musculoskeletal: chronic back pain, spinal stenosis, FRACTURE HIP R SIDE Psychiatric: alcohol dependence, depression, insomnia, opioid dependence, substance abuse (some recent cocaine use), Bipolar, PTSD, anxiety, Endocrine: NONE Blood Disorders: NONE Cancer(s): NONE PHILOSOPHY LECTURER/Reproductive: NONE Past Surgical History Surgical History: none Psychosocial History Strengths/Capabilities: Pt is able to articulate his wants and needs. Pt has had episodes of treatment and stability. Physical Limitations (Interventions): Chronic back pain, spinal stenosis. Psychiatric Treatment History Psych Treatment Psychiatric Treatment Yes Inpatient Treatment Yes Outpatient Treatment Yes Location of Treatment [facility]; [facility] Reason for Treatment depression; substance abuse Dates of Treatment last inpatient [place] 2015 Response to Treatment pt has struggled with depression and addiction issues past 10 yrs Diagnosis by History: Major Depression Alcohol Use D/O Sedative Use D/O Opioid Use D/O Substance Use/Abuse History Drug Use/Abuse Substances Used/Abused Yes Substance Used/Abused Alcohol Last Used yesterday How much used/taken 1-1.5 pint How often daily For how long past month Substance Abuse Treatment Substance Abuse Treatment Past Substance Abuse [place] Yes Inpatient Treatment Yes Outpatient Treatment Yes Location of Treatment [facility], [facility]; [place]; [facility] Reason for Treatment etoh/cannabis/opiates/cocaine Dates of Treatment pt with multiple rehab episodes most recently 5 months at [facility] residential Response to Treatment pt reports relapse past month Comments: pt reports daily etoh 1-1.5 pints Current Mental Status Mental Status Orientation: Person, Place, Situation Affect: Depressed Speech: WNL Neuro-vegetative: Sleep Disturbance Appearance Appearance- Dress/Hygiene: hospital scrubs; unshaven; depressed, laying in bed Behaviors Thought Process: WNL Thought Content: WNL Memory: WNL Insight: Fair SI/HI Risk Assessment Past Suicidal Ideation/Attempts Yes Current Suicidal Ideation/Att Yes Past Homicidal Ideation/Att: No Current Homicidal Ideation/Attempts No Degree of Intent: States Intent Danger To: Self Gravely Disabled: Poor Impulse Control, Poor Judgment Risk Factors: access to lethal means, high anxiety/distress, history of suicide atmpts, SA/MH hospitalized, substance abuse, poor impulse control, weapons access, lives alone, male Lethality Ratin PTSD Checklist PTSD Done? patient declined ED Management Sitter: Yes Restraints: No DSM5/PS Stressors/Medical Prob Diagnosis' (DSM 5, Stressors, Medical): Dpressive D/O F 33.2 Alcohol Use D/O F10.20 off medications housing unemployment not seeing children Current GAF: 20 Comments: pt has been off medications past month and not scheduled to see new provider until August. Pt reports using etoh to self-medicate but is now suicidal. Departure Disposition Psych Medical Clearance Date: 07/31/17 Medically Cleared at: 0715 Time Started: 0715 Time Ended: 0800 Psychiatrist Consulted: Jagdeep Conde MD Date Disposition Established: 07/31/17 Time Disposition Established: 1000 Plan for Disposition - Modality: Bed Search Rationale for Disposition: mood stabilization; medication assessment Referrals Patient Has No Primary Care Dr (PCP/Family)
[2017-07-31] MEDS ORDERED: HYDROXYZINE PAM50 M1 PO (13:12)
[2017-07-31 15:00] VITALS: BP 132/66
== END 2017-07-31 16:10 | disposition short-term general hospital (02) ==
LOC: ERH 18:59
PROVIDERS: Physician Assistant Medical
DX: R45.851 Suicidal ideations (principal)
CPT/HCPCS: 80307; G0463; G0480